=== PATIENT | male | born 2005 | race African-American/Black ===

== ENCOUNTER 2025-02-02 22:10 | Emergency (ER) | payer SELFPAY ==
[2025-02-02 22:23] VITALS: BP 140/93
--- NOTE | 2025-02-02 23:50 | ED.GENMED ---
History of Present Illness
General
Chief Complaint: Musculo-Skeletal Complaint
Source: patient
Time Seen by Provider: 02/02/25 23:48
History of Present Illness
History of Present Illness:
19-year-old male presenting to the emergency department for evaluation after injuring his left shoulder at a football game earlier this evening. Pain to the lateral clavicular area. Limited range of motion secondary to pain. No other injuries
reported. Denies any previous history of injury or surgery
Past History
Past History
ED Past Medical History: None
ED Past Surgical History: Orthopedic
Social History
Tobacco: Non-smoker
Alcohol: None
Drug: None
Personal: Single
Living: with roommate
Employment: Student
Review of Systems
Review of Systems
All Other Systems: ROS reviewed and negative except as documented in HPI and ROS
Phy Exam
Physical Exam
Physical Exam:
GENERAL: Alert , in no apparent distress
EYE: conjunctiva clear
Head: Normocephalic atraumatic
NECK: Supple,
ENT: mmm.
LUNGS: no acute respiratory distress
NEUROLOGICAL: Alert and oriented
SKIN: Warm and dry, skin intact.
MUSCULOSKELETAL: Left upper extremity: Sling in place, no obvious deformity, erythema, edema, ecchymosis, abrasion or laceration. No focal bony tenderness. Range of motion limited secondary to pain. Extremity is otherwise warm well-perfused.
PSYCH: Normal and appropriate interaction.
Scores
Heart Failure Risk
Heart Failure Risk Score: Not Applicable
Heart Score for Chest Pain Patients
STEMI patient?: Not applicable
Withdrawal Assessment of Alcohol
Withdrawal Assessment Completed?: Not applicable
Course
Orders/Labs/Results
Orders:
Orders
02/02/25 22:31
Clavicle, Left Complete CR [CR Clavicle - Left Complete ] Urgent
Comment:
Reason For Exam: hit into, pain
Vital Signs
Initial and Last Documented VS:
Initial Vital Signs
Temp Pulse Resp BP Pulse Ox
97.9 F 64 16 140/93 99
02/02/25 22:23 02/02/25 22:23 02/02/25 22:23 02/02/25 22:23 02/02/25 22:23
Last Documented Vital Signs
Temp Pulse Resp BP Pulse Ox
97.9 F 64 16 140/93 99
02/02/25 22:23 02/02/25 22:23 02/02/25 22:23 02/02/25 22:23 02/02/25 23:51
MDM/Problems Addressed
Differential Diagnosis Includes:
Sprain
Fracture
Dislocation/subluxation
Clavicle injury
MDM/Problems Addressed:
19-year-old male presented to the ER for evaluation of left shoulder pain following an injury in football game earlier this evening. X-ray was ordered from triage and is negative for any acute fracture or dislocation. Advised patient to use use
sling for pain as needed. Motrin/Tylenol as needed for pain. Patient aware of return precautions to the ER.
*Radiology
Radiology exam reviewed: preliminary read by ED provider (No acute fracture)
*Pulse Oximetry
SaO2: 99
Oxygen Mode of Delivery: Room air
Patient hypoxic: no
*Critical Care Note
Total Time (30-74mins, 75-104mins- exclusive of procedures): Not Applicable
ED Attending Note
-
Portions of this chart may have been created with voice recognition software.� Occasional wrong word or��sound alike� substitutions may have occurred due to the inherent limitations of voice recognition software.
Discharge Plan
Departure
Patient Disposition: Home (Routine Discharge)
Date of Disposition: 02/02/25
Time of Disposition: 23:50
Patient with high blood pressure during this ER visit?: Yes
Discharge Problem:
Sprain of left shoulder
Instructions: Shoulder Sprain ED
Referrals:
Maximo Steiner MD [Active, Orthopedics]
Interventions
Interventions:
*Risk Screen - Suicide Last Done: 02/02/25 22:23
*General Assessment Last Done: 02/02/25 22:23
*Neglect/Abuse Screening Last Done: 02/02/25 22:23
*ED- Fall Risk Assessment Last Done: 02/02/25 22:23
*ED COVID-19 Vaccine History Last Done: 02/02/25 22:23
ED-Musculoskeletal Assessment Last Done: 02/02/25 23:50
Discharge Date and Time
Print Language: NEPALESE
[2025-02-03] VITALS: BP 138/93
== END 2025-02-03 | disposition home or self-care (01) ==
LOC: EMR 22:10
PROVIDERS: EMERGENCY PHYSICIAN Emergency Medicine
DX: S43.402A Unspecified sprain of left shoulder joint, initial encounter (principal); X58.XXXA Exposure to other specified factors, initial encounter; Y93.61 Activity, american tackle football
CPT/HCPCS: 99283; 73000